=== PATIENT | male | born 1950 | race Caucasian/White ===

== ENCOUNTER 2023-07-03 09:23 | Emergency (ER) | payer MEDICARE, OTHER ==
[~2023-07-03] VITALS: Ht 167.6 cm; Wt 71.0 kg
[2023-07-03 09:37] VITALS: BP 109/59; TEMP 99.4
[2023-07-03 10:44] VITALS: O2SAT 97
== END 2023-07-03 10:56 | disposition home or self-care (01) ==
LOC: ER 09:27
DX: U07.1 COVID-19 (principal); J06.9 Acute upper respiratory infection, unspecified; R05.9 Cough, unspecified
CPT/HCPCS: 71045-TC; C9803